=== PATIENT | female | born 1975 | race Caucasian/White ===

== ENCOUNTER 2019-03-10 01:49 | Outpatient (CLI) | payer OTHER, SELFPAY ==
--- NOTE | 2019-03-10 09:00 | DI.CT_ITS ---
SYMPTOM/DIAGNOSIS: VERTIGO, BENIGN PAROXYSMAL POSITIONAL H81.10. SINUSITIS J32.[address]: 03/[address] was performed. There is mild mucoperiosteal thickening of dependent portions of maxillary antra bilaterally. Otherwise the paranasal sinuses are clear. Mastoid air cells are clear. The ostiomeatal complexes and maxillary antra appear intact bilaterally with patent infundibuli. There is bilateral juan antonio bullosa of the middle turbinates. Orbital and temporal bone structures appear intact. Visualized brain is unremarkable in appearance. CONCLUSION: Minimal dependent mucoperiosteal thickening of the maxillary antra. Sinus CT otherwise unremarkable.
== END 2019-03-10 02:09 ==
PROVIDERS: PCP Internal Medicine; Visit Provider Nurse Practitioner Family
DX: H81.10 Benign paroxysmal vertigo, unspecified ear; J32.0 Chronic maxillary sinusitis; J34.89 Other specified disorders of nose and nasal sinuses
CPT/HCPCS: 70450; 70486

== ENCOUNTER 2021-04-15 18:30 | Outpatient (REF) | payer OTHER, SELFPAY ==
[2021-04-17 13:30] LABS: COVID-19 RT-PCR UVMMC Result Positive (Negative)
== END 2021-04-15 18:31 | disposition home or self-care (01) ==
LOC: NCHCN 18:30
PROVIDERS: PCP Internal Medicine; Visit Provider Nurse Practitioner Family
DX: Z20.822 Contact with and (suspected) exposure to COVID-19 (principal); J02.9 Acute pharyngitis, unspecified
CPT/HCPCS: U0003

== ENCOUNTER 2023-02-24 09:21 | Day surgery (SDC) | payer OTHER, SELFPAY ==
--- NOTE | 2023-02-24 07:30 | W.PM.DSUDISC ---
Date of service: 02/24/23 Time of Service: 07:30 Discharge Plan Disposition Patient Disposition: Home Condition: Good Discharge Details Reason For Visit: R ECTR Attending Provider: Foster Turner Primary Care Provider: Tomas Matute Home Meds and New Rx's Prescriptions: New hydrocodone-acetaminophen 5-325 mg tablet 1 tab PO Q6H PRN (Reason: pain) Qty: 6 0RF acetaminophen 500 mg tablet 1,000 mg PO TID Qty: 90 0RF ibuprofen 600 mg tablet 600 mg PO TID PRN (Reason: pain) Qty: 90 0RF Continued omeprazole 20 mg capsule,delayed release(DR/EC) 20 mg PO DAILY cetirizine 10 mg tablet 10 mg PO DAILY PRN Discharge Instructions Stand Alone Forms: Johnny Somers Tunnel Release Activity:: Activity as Tolerated Remove Dressings/Wound Care:: 48 hours Shower/Bathe:: 48 hours Diet:: As Tolerated Discharge Orders Discharge Orders: Discharge Order (Routine); Ordered 02/24/23 Ordered By: García Guadalupe DS: Diagnosis Discharge Diagnosis (1) Right carpal tunnel syndrome: Status: Acute
[2023-02-24 09:26] VITALS: BP 103/72; PULSE 73; RESP 18; TEMP 36.2; O2SAT 98
[2023-02-24] MEDS: Lactated Ringers 1,000 ML 80 ML IV (10:00)
--- NOTE | 2023-02-24 10:15 | W.ANESPRE ---
General Info Date of Service Date Performed: 02/24/23 Height: 4 ft 10 in Weight: 73.2 kg Body Mass Index (BMI): 33.7 Surgical Procedure: Operation Date: 02/24/23 11:10 Proposed Procedure Side Surgeon p Wrist ECTR Right Foster Turner MD Pre-Op Diagnosis Post-Op Diagnosis R ECTR Meds Allergies and Home Medications Allergies Allergy/AdvReac Type Severity Reaction Status Date / Time amoxicillin Allergy Severe hives, Verified 02/24/23 09:42 throat closing up cefaclor [From [facility]] Allergy Severe throat Verified 02/24/23 09:42 closing up environmental Allergy Unknown Uncoded 02/24/23 09:42 Home Medication Medication Instructions Recorded cetirizine 10 mg tablet 10 mg PO DAILY PRN 10/21/22 omeprazole 20 mg capsule,delayed 20 mg PO DAILY 02/05/23 release acetaminophen 500 mg tablet 1,000 mg PO TID #90 tabs 02/24/23 hydrocodone 5 mg-acetaminophen 325 1 tab PO Q6H PRN pain #6 tabs 02/24/23 mg tablet ibuprofen 600 mg tablet 600 mg PO TID PRN pain #90 tabs 02/24/23 Current Visit Medications: Current Medications Generic Name Dose Route Start Last Admin Trade Name Freq PRN Reason Stop Dose Admin Acetaminophen 650 mg 02/24/23 07:29 Acetaminophen 325 Mg Tab PO 03/26/23 07:28 Q4H PRN PRN Hydrocodone Bitart/Acetaminophen 0 tab 02/24/23 07:29 Hydrocodone 5/Acetaminophen 325 Tab PO 03/26/23 07:28 Q3H PRN PRN Pain Ringer's Solution 1,000 mls @ 80 mls/hr 02/24/23 06:00 02/24/23 10:00 IV 03/25/23 23:59 80 mls/hr INFUSION MANNIE Administration Clindamycin Phosphate/Dextrose 900 mg in 50 mls @ 50 mls/hr 02/24/23 06:00 Cleocin In D5w IVPB 02/24/23 16:00 PREOP MANNIE IV Miscellaneous Supplies 1 each 02/24/23 06:00 Iv Access IV 03/25/23 23:59 DIRECTED MANNIE Sodium Chloride 0 ml 02/24/23 06:00 Normal Saline Flush 10 Ml Syr IV 03/25/23 23:59 PRN PRN Sodium Chloride 0 ml 02/24/23 06:00 Normal Saline 10 Ml Vial IJ 03/25/23 23:59 DIRECTED PRN Sterile Water 0 ml 02/24/23 06:00 Water,Injection,Sterile 10 Ml Vial IJ 03/25/23 23:59 DIRECTED PRN PFSH Active Problems Active Problems: Problem Status Onset Code Right carpal tunnel syndrome G56.01 Right wrist pain M25.531 De Quervain's tenosynovitis, right M65.4 Medical History Medical History (Updated 02/24/23 @ 10:13 by No Michaud, RN) Ankle fracture, left Asthma delivery delivered x2 Chronic cough Depression Pt denies this Hemorrhage, anal or rectal Pt. denies this Obesity Ovarian cyst Plantar fascial fibromatosis Seasonal allergies Vertigo, benign paroxysmal Surgical History Surgical History (Updated 02/24/23 @ 10:10 by No Michaud, RN) History of appendectomy History of tonsillectomy History of tubal ligation Status post breast reduction Tobacco Smoking/Tobacco Use Status: Never Alcohol Alcohol Intake: current Alcohol intake frequency: holidays/special occasions only Substance Use Substance use type: does not use Vital Signs and Lab Results Vital Signs Most Recent Vital Signs in EMR: Most Recent Vital Signs Temp Pulse Resp BP Pulse Ox 36.2 C L 73 18 103/72 98 02/24/23 09:26 02/24/23 09:26 02/24/23 09:26 02/24/23 09:26 02/24/23 09:26 Point of Care Results Point of Care Results: POC- Test(urine) Negative 02/24/23 10:03 Lab Results Blood Type / Crossmatch: No Data to Display Complete Blood Count: No Data to Display Complete Metabolic Panel: No Data to Display Liver Function Panel: No Data to Display Coagulation Panel: No Data to Display Cardiac Panel: No Data to Display Arterial Blood Gas: No Data to Display Venous Blood Gas: No Data to Display Pancreas Panel: No Data to Display Thyroid Panel: No Data to Display Infectious Disease: No Data to Display Blood Cultures: No Data to Display Toxicology Panel: No Data to Display Panel: No Data to Display Anesthesia Assessment and Plan Anesthesia History Personal History: No History of Anesthesia Complications and Delayed Emergence Family History: No Family History of Anesthesia Complications Exercise Tolerance Exercise Tolerance: Metabolic Equivalents>4 Pertinent Negatives Pertinent Negatives: No Symptoms of GERD, No Major Cardiovascular Symptoms or Complaints and No Major Pulmonary Symptoms or Complaints Cardiac & Pulmonary Exam Cardiac Exam: Normal S1/S2 Heart Sounds Pulmonary Exam: Clear Bilateral Breath Sounds Implantable Cardiac Device Does patient have a Pacemaker or an ICD?: No Airway Exam Known Difficult Airway: No Mallampati Class: 1 Mouth Opening: Normal (> 3cm) Thyromental Distance: Greater than 3 cm Neck Range of Motion: Full ROM Neck Circumference: Normal Teeth Condition: Normal Dentition ASA Classification ASA Score: ASA 2 Emergency Case?: No NPO Status NPO Status: NPO Clears >2 hours, Solids >8 hours Status Status: Negative HCG Anesthesia Plan Resuscitation Status: Full Code Anesthesia Technique: General Anesthesia Airway Planned: Natural Airway Monitors Used: Standard Monitors
[2023-02-24 10:18] VITALS: BMI 33.7
--- NOTE | 2023-02-24 10:47 | W.PREOPHP ---
Assessment and Plan Assessment and plan (1) Right carpal tunnel syndrome: Status: Acute Assessment and plan: Meredith is a 47-year-old female who has carpal tunnel syndrome on the right side. Please the previous office note for complete medial history. Once again I reviewed the surgery with her today. I discussed the risk to include bleeding, infection, pain, stiffness, recurrence, damage to nerves or vessels, inflammation or scarring around the nerves or tendons. Despite these risk, she elects to proceed. History of Present Illness Narrative: Meredith is a 47-year-old who presents today for her right carpal tunnel. Please the previous office note for complete detailed history. She has no active medical issues. She has no chest pain or shortness of breath. Review of Systems All systems reviewed & are unremarkable except as noted in HPI and below PFSH All Active Problems Right carpal tunnel syndrome (Acute) S/P R ECTR: 02/24/2023 Right wrist pain (Acute) De Quervain's tenosynovitis, right (Acute) 40 mg Depo-Medrol injection: 02/05/2023 Medical History Ankle fracture, left Asthma delivery delivered x2 Chronic cough Depression Pt denies this Hemorrhage, anal or rectal Pt. denies this Obesity Ovarian cyst Plantar fascial fibromatosis Seasonal allergies Vertigo, benign paroxysmal Surgical History History of appendectomy History of tonsillectomy History of tubal ligation Status post breast reduction Social History Smoking/Tobacco Use Status: Never Smoking risk assessment performed?: Yes Alcohol Intake: current Alcohol Intake frequency: holidays/special occasions only Substance use type: does not use Housing: house Current gender identity: female Do you feel safe at home: Yes Do you feel safe in your relationship?: Yes Meds Allergies and Home Medications Allergies Allergy/AdvReac Type Severity Reaction Status Date / Time amoxicillin Allergy Severe hives, Verified 02/24/23 09:42 throat closing up cefaclor [From [facility]or] Allergy Severe throat Verified 02/24/23 09:42 closing up environmental Allergy Unknown Uncoded 02/24/23 09:42 Home Medications Medication Instructions Recorded Confirmed Type cetirizine 10 mg tablet 10 mg PO DAILY PRN 10/21/22 02/24/23 History omeprazole 20 mg capsule,delayed 20 mg PO DAILY 02/05/23 02/24/23 History release acetaminophen 500 mg tablet 1,000 mg PO TID #90 tabs 02/24/23 Rx hydrocodone 5 mg-acetaminophen 325 1 tab PO Q6H PRN pain #6 tabs 02/24/23 Rx mg tablet ibuprofen 600 mg tablet 600 mg PO TID PRN pain #90 tabs 02/24/23 Rx Exam Resp Auscultation: clear to auscultation bilaterally Cardio Rate: regular rate Rhythm: regular rhythm Results Last Vital Signs Temp 36.2 C L 02/24/23 09:26 Pulse 73 02/24/23 09:26 Resp 18 02/24/23 09:26 BP 103/72 02/24/23 09:26 Pulse Ox 98 02/24/23 09:26
[2023-02-24] MEDS: CLINDAMYCIN 900 MG/50 ML BAG 50 MG IVPB (11:04)
[2023-02-24] MEDS: Lidocaine 1% Pres-Free W/EPI 1/200,000 30 ML VIAL (11:14)
[2023-02-24 11:27] VITALS: BP 122/74; PULSE 64; RESP 16; TEMP 36.6; O2SAT 97
--- NOTE | 2023-02-24 11:33 | W.PM.OP ---
Date of service: 02/24/23 Time of Service: 11:15 Operative Note Operative Note DATE OF PROCEDURE: 02/24/23 PRE-OP DIAGNOSIS: Right Carpal Tunnel Syndrome POST-OP DIAGNOSIS: same PROCEDURE: Right Endoscopic Carpal Tunnel Release SURGEON: Foster Turner ANESTHESIA TYPE: General:No Airway Refer to Anesthesia Record ESTIMATED BLOOD LOSS: 0 PATHOLOGY: none sent TOURNIQUET TIME: 6 COMPLICATIONS: None Patient was transported to: same day Patient's condition: stable Indications: I have seen Meredith in clinic for symptoms of carpal tunnel syndrome. The numbness, tingling, and pain limited function. Clinical exam findings confirmed the diagnosis of carpal tunnel syndrome. Nonoperative measures such as bracing, time, activity modifications had been tried but disability and pain persisted. I discussed carpal tunnel release with the patient. I reviewed the risks of the procedure to include, but not limited to, bleeding, infection, pain, stiffness, incomplete release, damage to nerves or vessels, persistent numbness, recurrence. Despite these risks, the patient elected to proceed. Findings: There was tightened carpal tunnel. This was dilated and released successfully with the endoscopic with increased space within the tunnel. The antebrachial fascia was released proximally freeing the median nerve at the wrist. Procedure Description: Meredith was greeted in the preoperative holding area where the correct side was identified and marked. The consent was reviewed with the patient and signed. The history and physical was updated. All questions were answered. She was taken back to the operating room. The patient was placed into the supine position on the operating room table with the right arm on an arm board. A nonsterile tourniquet was placed high onto the arm. All bony prominences were well padded. Prophylactic antibiotics in the form of Cefazolin were administered. The right arm was then prepped with Chloraprep and draped in a standard fashion with stockinette and extremity drape. A timeout to confirm correct identity, side and site, procedure, allergies, anesthesia, and medical concerns was performed. The surgical site was marked in the volar wrist creases in line with the radial border of the fourth ray. This area was anesthetized with approximately 6cc of 1% Lidocaine. The limb was then exsanguinated with an Esmarch. The skin was incised with a 15 blade, approximately 1cm. The skin only was cut and the deeper tissue was dissected bluntly with a tenotomy scissor, avoiding passing nerve and venous structures. The fascia was penetrated and opened bluntly. A two-prong skin hook was placed under this proximal fascial edge. A series of hamate finders were used to identify and dilate the carpal tunnel. Synovial elevator was used to free synovial attachments to the underside of the transverse carpal ligament. My thumb was kept in the palm to kristopher the distal extent of the carpal tunnel and correctly position the hand. The [employer] endoscope was inserted without difficulty and without resistance. Excellent visualization showed horizontally running fibers of the transverse carpal ligament (TCL). The distal extent of the TCL was visualized and the end of the scope palpated with the thumb. The blade was elevated and withdrawn from distal to proximal. The TCL was split into two flaps. The endoscope was reinserted to confirm complete release and any remnant ligament was incised. The scope was withdrawn and the proximal aspect of the carpal tunnel was grossly inspected and appeared release with the median nerve visible. The antebrachial fascia at the level of the wrist was then freed from the overlying skin and then the underlying median nerve with blunt dissection. This was transected longitudinally for about 3cm proximal to the wrist incision. The wound was then irrigated with easy flow of irrigant distally and proximally. The incision was closed with a single 4-0 Nylon suture. The wound was dressed with Xeroform, Gauze, Kerlix and Ben. The tourniquet was deflated with the initial dressing and held with some pressure. Blood flow returned easily to all digits with capillary refill less than 2 seconds. The patient tolerated the procedure well and was returned to the Same Day Surgery area in a stable condition suffering no known complication.
[2023-02-24 11:58] VITALS: BP 140/96; PULSE 65; RESP 18; TEMP 37; O2SAT 99
--- NOTE | 2023-02-24 11:58 | W.ANESPOSTOP ---
Postoperative Evaluation Date, Time and Location Date Performed: 02/24/23 Time Performed: 11:59 Patient Location: Day Surgery Unit Vital Signs Most Recent Imported Vital Signs: Most Recent Vital Signs Temp Pulse Resp BP Pulse Ox 36.6 C 64 16 122/74 97 02/24/23 11:27 02/24/23 11:27 02/24/23 11:27 02/24/23 11:27 02/24/23 11:27 Pain Score Most Recent Pain Score: Most Recent Pain Score Pain Level 0 02/24/23 11:27 Assessment Mental Status: Awake (Alert & Oriented to Patient Baseline) Airway and Respiratory Function: Patent airway with normal (patient baseline) respiratory exam Cardiovascular Function: Hemodynamically Stable Hydration Status: Adequately Hydrated Nausea & Vomiting: No Nausea or Vomiting Pain: Pt. Denies Any Pain Peripheral Nerve Block: Patient did not receive a nerve block
== END 2023-02-24 12:32 | disposition home or self-care (01) ==
LOC: SUR 09:22
PROVIDERS: PCP Internal Medicine; Visit Provider Student in an Organized Health Care Education/Training Program
PROC: 01N54ZZ Release Median Nerve, Percutaneous Endoscopic Approach (ICD-10-PCS; CPT 29848; principal; 2023-02-24 11:00)
DX: G56.01 Carpal tunnel syndrome, right upper limb (principal)
CPT/HCPCS: 29848; 81025; J1100; J1885; J2001; J2405; J3010

== ENCOUNTER 2023-03-05 09:38 | Outpatient (CLI) | payer OTHER, SELFPAY ==
--- NOTE | 2023-03-05 09:09 | DI.RAD_ITS ---
Exam(s) XR HAND LT COMPLETE EXAM: XR HAND LT COMPLETE CLINICAL HISTORY: left wrist pain. TECHNIQUE: 2D digital imaging was performed of the left hand. Three views were obtained. AP, later al and oblique views were obtained. COMPARISON: No exams were available for comparison FINDINGS: BONES: No acute fracture is present. No bony destructive lesion is seen. JOINTS: No dislocation present. The joint spaces are well maintained. SOFT TISSUE: Normal. IMPRESSION: Unremarkable radiographs of the left hand. DATA REPOSITORY: RADIATION DOSE DELIVERED:
== END 2023-03-05 09:39 | disposition home or self-care (01) ==
LOC: DIORS 09:38
PROVIDERS: PCP Internal Medicine; Visit Provider Physician Assistant
DX: M25.532 Pain in left wrist (principal)
CPT/HCPCS: 73130

== ENCOUNTER 2023-04-02 09:43 | Outpatient (CLI) | payer OTHER, SELFPAY ==
--- NOTE | 2023-04-02 09:15 | DI.RAD_ITS ---
Exam(s) XR HAND RT COMPLETE EXAM: XR HAND RT COMPLETE CLINICAL HISTORY: right thumb pain. TECHNIQUE: 2D digital imaging was performed of the right hand. Three images were obtained. AP, late ral and oblique views were obtained. COMPARISON: No exams were available for comparison FINDINGS: BONES: No acute fracture is present. No bony destructive lesion is seen. JOINTS: No dislocation present. The joint spaces are well maintained. SOFT TISSUE: Normal. IMPRESSION: Unremarkable radiographs of the right hand. DATA REPOSITORY: RADIATION DOSE DELIVERED:
== END 2023-04-02 09:44 | disposition home or self-care (01) ==
LOC: DIORS 09:44
PROVIDERS: PCP Internal Medicine; Referring Provider Internal Medicine; Visit Provider Physician Assistant
DX: M79.641 Pain in right hand (principal)
CPT/HCPCS: 73130

== ENCOUNTER 2025-04-05 19:23 | Outpatient (REF) | payer OTHER, SELFPAY ==
[2025-04-05 20:21] LABS: ALT 27 U/L (14-59); AST 22 U/L (15-37); Albumin 3.7 g/dL (3.4-5.0); Alkaline Phosphatase 55 U/L (46-116); Amylase 35 U/L (25-115); Anion Gap 10.6 mmol/L (3-11); BUN 10 mg/dL (7-18); Bilirubin, Total 0.6 mg/dL (0.2-1.0); CO2 23.4 mmol/L (21.0-32.0); Calcium 8.7 mg/dL (8.5-10.1); Chloride 106 mmol/L (98-107); Estimated GFR 90.83 (mL/min/1.73m2); Glucose 94 mg/dL (74-106); Lipase 40 U/L (<78); Potassium 3.6 mmol/L (3.5-5.1); Sodium 140 mmol/L (136-145); Total Protein 7.2 g/dL (6.4-8.2)
== END 2025-04-05 19:24 | disposition home or self-care (01) ==
LOC: NCHCN 19:23
PROVIDERS: PCP Internal Medicine; Visit Provider Nurse Practitioner Family
DX: R10.9 Unspecified abdominal pain (principal)
CPT/HCPCS: 80053; 83690; 82150